=== PATIENT | male | born 1980 | race Caucasian/White ===

== ENCOUNTER 2016-11-24 18:51 | Emergency (ER) | payer MEDICARE ==
[2016-11-24 21:23] LABS: HEMOGLOBIN 14.6 gm/dl (14.0-17.5); RED BLOOD COUNT 5.18 M/UL (4.20-5.50)
[2016-11-24 21:50] LABS: BUN/CREATININE RATIO 14 (0-10)
== END 2016-11-24 23:15 | disposition home or self-care (01) ==
LOC: ER1 18:51
PROVIDERS: Emergency Medicine
DX: J18.9 Pneumonia, unspecified organism (principal)
CPT/HCPCS: 36415; 71010; 80053; 82550; 82553; 83874; 84484; 85025; 93005; 99285